=== PATIENT | female | born 1960 | race Caucasian/White ===

== ENCOUNTER 2019-05-09 12:02 | Emergency (ER) | payer OTHER | END 2019-05-09 13:12 | disposition home or self-care (01) | LOC: BURERS 12:02 | DX: J10.1 Influenza due to other identified influenza virus with other respiratory manifestations (principal); K21.9 Gastro-esophageal reflux disease without esophagitis; F32.9 Major depressive disorder, single episode, unspecified | CPT/HCPCS: 87804; 99283 ==